=== PATIENT | male | born 1950 | race Caucasian/White ===

== ENCOUNTER → 2022-08-07 | Outpatient (CLI) | payer MEDICARE | END | disposition home or self-care (01) | LOC: RAH 10:52 | PROVIDERS: ATTEND Student in an Organized Health Care Education/Training Program | DX: M75.101 Unspecified rotator cuff tear or rupture of right shoulder, not specified as traumatic (principal); M89.011 Algoneurodystrophy, right shoulder; M75.41 Impingement syndrome of right shoulder; M25.711 Osteophyte, right shoulder | CPT/HCPCS: 73221 ==

== ENCOUNTER → 2023-06-21 | Outpatient (CLI) | payer OTHER | END | disposition home or self-care (01) | LOC: RAH 12:43 | PROVIDERS: ATTEND Internal Medicine Cardiovascular Disease | DX: Z13.6 Encounter for screening for cardiovascular disorders (principal) | CPT/HCPCS: 75571 ==

== ENCOUNTER 2023-12-12 06:38 | Observation (INO) | payer MEDICARE ==
[2023-12-06 11:44] LABS: BASOPHILS # (AUTO) 0.02 K/uL (0.00-0.20); BASOPHILS % (AUTO) 0.3 % (0.0-5.0); EOSINOPHILS # (AUTO) 0.23 K/uL (0.00-0.70); HEMATOCRIT 36.3 % (42-54); IMMATURE GRANULOCYTE ABSOLUTE 0.03 K/uL (0-1); LYMPHOCYTES # (AUTO) 1.9 K/uL (1.0-4.8); LYMPHOCYTES % (AUTO) 33.3 % (21.0-51.0); MEAN CORPUSCULAR HEMOGLOBIN 30.7 pg (27.0-33.0); MEAN CORPUSCULAR VOLUME 87.7 fL (79-99); MONOCYTES # (AUTO) 0.6 K/uL (0.1-1.0); MONOCYTES % (AUTO) 10.8 % (3.0-13.0); NEUTROPHILS # (AUTO) 2.9 K/uL (1.8-7.7); NEUTROPHILS % (AUTO) 51.1 % (40.0-77.0); PLATELET COUNT (AUTO) 235 K/uL (130-400); RED BLOOD CELL COUNT(AUTO) 4.14 MIL/uL (4.50-6.20); WHITE BLOOD COUNT (AUTO) 5.8 K/uL (4.8-10.8)
[2023-12-06 11:55] LABS: INR 0.94 (0.85-1.15); PROTHROMBIN TIME 10.9 SEC (9.6-11.6)
[2023-12-06 11:56] LABS: ALBUMIN 3.8 g/dL (3.5-5.0); CREATININE 1.2 mg/dL (0.5-1.5); PARTIAL THROMBOPLASTIN TIME 27.6 SEC (26.3-35.5)
[2023-12-06 11:57] LABS: APPEARANCE,URINE CLEAR (CLEAR); BILIRUBIN,URINE 1 mg/dL (NEGATIVE); COLOR,URINE LIGHT-YELLOW (YELLOW); GLUCOSE, URINE (UA) NEGATIVE (NEGATIVE); KETONES,URINE NEGATIVE (NEGATIVE); LEUKOCYTE ESTERASE ,URINE NEGATIVE Leu/uL (NEGATIVE); NITRATE,URINE NEGATIVE (NEGATIVE); OCCULT BLOOD,URINE NEGATIVE (NEGATIVE); PH,URINE 5.5 (5.0-8.0); PROTEIN,URINE NEGATIVE (NEGATIVE); UROBILINOGEN,URINE 0.2 mg/dL (0.2-1.0)
[2023-12-06 12:01] LABS: ADD UA MICROSCOPIC YES
[2023-12-06 12:20] LABS: MUCUS,URINE RARE LPF (None Seen); RBC,URINE 0-1 /HPF (0-1); WBC,URINE 0-1 /HPF (0-1)
[2023-12-06 12:42] VITALS: BP 168/85; PULSE 57; RESP 16
[2023-12-12] VITALS (28 sets, daily range): BP systolic 113–151; BP diastolic 51–71; PULSE 54–75; RESP 10–20; O2SAT 97–100
[~2023-12-12] VITALS: Ht 177.8 cm; Wt 127.9 kg
[2023-12-12] MEDS: CEFAZOLIN SODIUM 1 GM VIAL ONE (06:30)
[2023-12-12] MEDS: CEFAZOLIN SODIUM 2 GM VIAL ONE (06:30)
[~2023-12-12 06:38] MED LIST: ATOR40TA71 PO; AZEL137S11 NS; CARB-182 OU; CARV6.25 PO; CHOND PO; DILT300T11 PO; ETOD400T3 PO; FENO145T26 PO; FLUO40CR9 TP; FLUT15.845 NS; GLUCOSAMINE PO; LEVO5TAB13 PO; LEVO75 PO; LOSA1TAB37 PO; MONT-39 PO; OMEP20TA20 PO; PURELAX PO; TADA5TAB13 PO; VENL37.587 PO; XYLIMELTS PO; mvi PO; preservision PO
[2023-12-12] MEDS ORDERED: PROPOFOL 10 MG/ML 20ML VIAL IV ONE (07:50)
[2023-12-12] MEDS ORDERED: ROCURONIUM BROMIDE 10MG/1ML 5ML VL ONE ×2 (07:50→10:06)
[2023-12-12] MEDS ORDERED: SUCCINYLCHOLINE CHLORIDE 20 MG/ML 10 ML VIAL ONE (07:50)
[2023-12-12] MEDS ORDERED: MIDAZOLAM HCL 1 MG/ML 2ML VIAL ONE (07:50)
[2023-12-12] MEDS ORDERED: GLYCOPYRROLATE 0.2 MG/ML 5 ML VIAL ONE (07:50)
[2023-12-12] MEDS ORDERED: LIDOCAINE PF 100MG/5ML (2%) SYRINGE 5ML ONE (07:50)
[2023-12-12] MEDS ORDERED: PHENYLEPHRINE HCL 10 MG/ML 1ML VIAL IV ONE (07:51)
[2023-12-12] MEDS ORDERED: FENTANYL CITRATE PF 50 MCG/1 ML 2ML VIAL ONE ×2 (07:51→10:03)
[2023-12-12] MEDS ORDERED: ROPIVACAINE 0.5% 5MG/ML 30ML ONE ×2 (07:56→08:27)
[2023-12-12] MEDS ORDERED: TRANEXAMIC ACID 1000MG/10ML ONE (08:27)
[2023-12-12] MEDS ORDERED: KETOROLAC 30MG VIAL (30MG/ML) ONE (08:27)
[2023-12-12] MEDS: LACTATED RINGERS 1000ML 1,000 ML IV ONE (09:20)
[2023-12-12] MEDS: CEFAZOLIN SODIUM 3 GM VIAL IVPB ONE (09:50)
[2023-12-12] MEDS: TRANEXAMIC ACID 1000MG/10ML IV ONE ×3 (09:52→11:01)
[2023-12-12] MEDS ORDERED: EPHEDRINE SULFATE 50 MG/ML AMPULE ONE (09:59)
[2023-12-12] MEDS: KETOROLAC 30MG VIAL (30MG/ML) IJ ONE ×2 (10:17→10:59)
[2023-12-12] MEDS: ROPIVACAINE 0.5% 5MG/ML 30ML IJ ONE ×2 (10:18→10:59)
[2023-12-12] MEDS: HYDROMORPHONE 1 MG INJ ONE (10:27)
[2023-12-12] MEDS: SUGAMMADEX SODIUM 200 MG/2 ML VIAL IV ONE (10:27)
[2023-12-12] MEDS: FAMOTIDINE 20MG VIAL IV ONE (10:27)
[2023-12-12] MEDS: 0.9%NACL 1000ML 1,000 ML IV SCH (12:00)
[2023-12-12] MEDS ORDERED: CYCLOBENZAPRINE HCL 10 MG TABLET PO PRN (12:00)
[2023-12-12] MEDS ORDERED: FERROUS FUMARATE 324 MG TABLET PO PRN (12:00)
[2023-12-12] MEDS ORDERED: POTASSIUM CHLORIDE 10% ELIXIR 20 MEQ/15 ML UDCUP PO PRN (12:00)
[2023-12-12] MEDS ORDERED: ONDANSETRON 4MG INJ IVP PRN (12:00)
[2023-12-12] MEDS ORDERED: CALCIUM CARB 500MG PO PRN (12:00)
[2023-12-12] MEDS ORDERED: TRAMADOL HCL 50 MG TABLET PO PRN (12:00)
[2023-12-12] MEDS ORDERED: POTASSIUM CHLORIDE 20MEQ/100ML 100 ML IV PRN (12:00)
[2023-12-12] MEDS: GABAPENTIN 100 MG CAPSULE PO SCH (14:00)
[2023-12-12] MEDS: CEFAZOLIN SODIUM 2 GM VIAL IVPB SCH (18:25)
[2023-12-12] MEDS: KETOROLAC 15MG/ML VIAL (15MG/ML) IV SCH (18:25)
[2023-12-12] MEDS ORDERED: CARBOXYMETHYLCELLULOSE SODIUM OU PRN (20:00)
[2023-12-12] MEDS ORDERED: APPL PO PRN (20:30)
[2023-12-12] MEDS ORDERED: XYLIMELTS PO PRN (20:30)
[2023-12-12] MEDS: CHOND PO SCH (21:00)
[2023-12-12] MEDS: AZELASTINE HCL NASAL SCH (21:00)
[2023-12-12] MEDS: FLUTICASONE PROPIONATE NASAL SCH (21:00)
[2023-12-12] MEDS: GLUCOSAMINE PO SCH (21:00)
[2023-12-12] MEDS: PRESERVISION PO SCH (21:00)
[2023-12-12] MEDS: DOCUSATE SODIUM 100 MG CAP PO SCH (21:51)
[2023-12-13 00:02] VITALS: BP 138/57; PULSE 77; RESP 18
[2023-12-13 03:47] LABS: HEMATOCRIT 30.6 % (42-54); MEAN CORPUSCULAR HEMOGLOBIN 30.8 pg (27.0-33.0); MEAN CORPUSCULAR HGB CONC 34.3 g/dL (32.0-36.0); MEAN CORPUSCULAR VOLUME 89.7 fL (79-99); RED BLOOD CELL COUNT(AUTO) 3.41 MIL/uL (4.50-6.20); RED CELL DISTRIBUTION WIDTH 13.1 % (11.0-15.5); WHITE BLOOD COUNT (AUTO) 9.1 K/uL (4.8-10.8)
[2023-12-13 03:50] VITALS: BP 113/49; PULSE 68; RESP 20
[2023-12-13 04:07] LABS: CREATININE 1.2 mg/dL (0.5-1.5); POTASSIUM 3.4 mmol/L (3.5-5.1)
[2023-12-13] MEDS: KCL 20 MEQ ERTAB PO PRN (06:39)
[2023-12-13 08:00] VITALS: BP 161/61; PULSE 68; RESP 20; O2SAT 100
[2023-12-13] MEDS ORDERED: KETOROLAC 15MG/ML VIAL (15MG/ML) IV PRN (08:00)
[2023-12-13] MEDS: HYDROCODONE/ACETAMINOPHEN 5/325 MG TAB PO PRN (08:23)
[2023-12-13] MEDS: VENLAFAXINE HCL XR 37.5 MG CAP PO SCH (08:38)
[2023-12-13] MEDS: FENOFIBRATE NANOCRYSTALLIZED 145 MG TAB PO SCH (08:38)
[2023-12-13] MEDS: ATORVASTATIN 40 MG TABLET PO SCH (08:38)
[2023-12-13] MEDS: CARVEDILOL 6.25 MG TABLET PO SCH (08:39)
[2023-12-13] MEDS: PANTOPRAZOLE 40 MG TAB DR PO SCH (08:39)
[2023-12-13] MEDS: LEVOTHYROXINE 75 MCG TABLET PO SCH ×2 (08:40→09:00)
[2023-12-13] MEDS: ASPIRIN 325MG EC TAB PO SCH (08:41)
[2023-12-13] MEDS: LOSARTAN/HYDROCHLOROTHIAZIDE 50-12.5MG TABLET PO SCH (08:41)
[2023-12-13] MEDS: MONTELUKAST SODIUM 10 MG TAB PO SCH (08:41)
[2023-12-13] MEDS: POLYETHYLENE GLYCOL 3350 17 GM POWD.PACK PO SCH (08:42)
[2023-12-13] MEDS: LEVOCETIRIZINE DIHYDROCHLORIDE PO SCH (08:51)
[2023-12-13] MEDS: FLUOROURACIL APPL TP SCH (09:00)
[2023-12-13] MEDS: DILTIAZEM HCL PO SCH (09:00)
[2023-12-13] MEDS: MVI PO SCH (09:00)
[2023-12-13] MEDS ORDERED: NON-FORMULARY MEDICATION 1 EACH (Omeprazole 20 MG) PO SCH (09:00)
[2023-12-13 12:00] VITALS: BP 135/64; PULSE 69; RESP 18
[2023-12-13] MEDS ORDERED: GABA100C PO (13:13)
[2023-12-13] MEDS ORDERED: HYDR-4060 PO (13:13)
[2023-12-13] MEDS ORDERED: CYCL-309 PO (13:13)
[2023-12-13] MEDS ORDERED: ASPI-891 PO (13:13)
[2023-12-13] MEDS ORDERED: DOCU-116 PO (13:13)
[2023-12-15] MEDS ORDERED: BISACODYL 10 MG SUPP.RECT RC PRN (12:00)
== END 2023-12-13 16:45 | disposition home or self-care (01) ==
LOC: DAH 06:38 → DAHIP 06:39 → DAH 06:39 → 4AH 13:45
PROVIDERS: ADMIT Student in an Organized Health Care Education/Training Program; ATTEND Student in an Organized Health Care Education/Training Program
DX: M17.11 Unilateral primary osteoarthritis, right knee (principal); G89.18 Other acute postprocedural pain; D62 Acute posthemorrhagic anemia; I10 Essential (primary) hypertension; K21.9 Gastro-esophageal reflux disease without esophagitis; E07.9 Disorder of thyroid, unspecified; G47.30 Sleep apnea, unspecified; I48.0 Paroxysmal atrial fibrillation; E78.5 Hyperlipidemia, unspecified; N40.0 Benign prostatic hyperplasia without lower urinary tract symptoms; Z86.2 Personal history of diseases of the blood and blood-forming organs and certain disorders involving the immune mechanism
CPT/HCPCS: 82040; 80048 ×2; 85025; 85610; 85730; 87088; 84134; 86140; 81001; 36415 ×2; 93005; 87641; 96374; 96375; 64447; 27447; 73560; 97161; 97116 ×3; 97530 ×7; 96376; 85027; G0378 ×26; A4663; A4215 ×2; J0690 ×5; J7120; J3490 ×8; J3010 ×2; J1170; J0330; J2001; J2250; J2704; J1885 ×5; J2795 ×3; J2371; C1713 ×2; G0168; C1776 ×2; A4930; A4649 ×2; A6255; A5120; A4223; A4213; A4222; A4221

== ENCOUNTER 2024-06-20 06:29 | Day surgery (SDC) | payer MEDICARE ==
[2024-06-18 14:37] LABS: BASOPHILS # (AUTO) 0.03 K/uL (0.00-0.20); BASOPHILS % (AUTO) 0.5 % (0.0-5.0); EOSINOPHILS % (AUTO) 4.8 % (0.0-8.0); HEMATOCRIT 34.3 % (42-54); IMMATURE GRANULOCYTE ABSOLUTE 0.02 K/uL (0-1); LYMPHOCYTES % (AUTO) 31.6 % (21.0-51.0); MEAN CORPUSCULAR HEMOGLOBIN 30.3 pg (27.0-33.0); MEAN CORPUSCULAR HGB CONC 33.2 g/dL (32.0-36.0); MEAN CORPUSCULAR VOLUME 91.2 fL (79-99); MONOCYTES # (AUTO) 0.7 K/uL (0.1-1.0); MONOCYTES % (AUTO) 11.3 % (3.0-13.0); NEUTROPHILS # (AUTO) 3.2 K/uL (1.8-7.7); NEUTROPHILS % (AUTO) 51.5 % (40.0-77.0); PLATELET COUNT (AUTO) 206 K/uL (130-400); RED BLOOD CELL COUNT(AUTO) 3.76 MIL/uL (4.50-6.20); RED CELL DISTRIBUTION WIDTH 14.2 % (11.0-15.5); WHITE BLOOD COUNT (AUTO) 6.3 K/uL (4.8-10.8)
[2024-06-18 14:49] LABS: POTASSIUM 3.7 mmol/L (3.5-5.1)
[2024-06-18 15:15] VITALS: BP 158/87; PULSE 61; RESP 19; TEMP 98.5
[2024-06-18 15:47] LABS: INR 1.03 (0.85-1.15); PROTHROMBIN TIME 11.1 SEC (9.6-11.6)
[2024-06-18 15:48] LABS: PARTIAL THROMBOPLASTIN TIME 26.8 SEC (26.3-35.5)
[2024-06-20] VITALS (18 sets, daily range): BP systolic 107–155; BP diastolic 44–77; PULSE 41–55; RESP 13–17; TEMP 97.1–98
[~2024-06-20] VITALS: Ht 177.8 cm; Wt 129.4 kg
[~2024-06-20 06:29] MED LIST changes: +ACET-2027 PO; -AZEL137S11 NS; -CARB-182 OU; -CHOND PO; +DOCU100C33 PO; +FINA5TAB41 PO; +GLUC15006 PO; -GLUCOSAMINE PO; +MULT1CAP17 PO; -PURELAX PO; +TAMS-1 PO; +VIT1CAPS5 PO; -XYLIMELTS PO; -mvi PO; -preservision PO
[2024-06-20] MEDS: ceFAZolin SODIUM 1 GM VIAL ONE (06:48)
[2024-06-20] MEDS: ceFAZolin SODIUM 2 GM VIAL ONE (06:48)
[2024-06-20] MEDS ORDERED: acetaMINOPHEN 1,000 MG/100 ML VIAL IV ONE (07:53)
[2024-06-20] MEDS ORDERED: FAMOTIDINE 20MG VIAL IV ONE (07:53)
[2024-06-20] MEDS ORDERED: ketaMINE 50MG/ML SYRINGE 50 MG/ML DISP.SYRIN ONE (07:55)
[2024-06-20] MEDS ORDERED: LIDOCAINE PF 100MG/5ML (2%) SYRINGE 5ML ONE (07:59)
[2024-06-20] MEDS ORDERED: FENTanyl CITRate PF 50 MCG/1 ML 2ML VIAL ONE (07:59)
[2024-06-20] MEDS ORDERED: proPOFol 10 MG/ML 20ML VIAL IV ONE (08:00)
[2024-06-20] MEDS ORDERED: rocuRONium bROMide 10MG/1ML 5ML VL ONE (08:00)
[2024-06-20] MEDS ORDERED: ACET-2079 PO (08:05)
[2024-06-20] MEDS ORDERED: dexaMETHasone SOD PHOSPHATE 10MG/ML 1ML VIAL ONE (08:09)
[2024-06-20] MEDS ORDERED: ONDANSETRON 4MG INJ ONE (08:10)
[2024-06-20] MEDS: BUPIvacaine/PF 0.25% 30ML VIAL IJ ONE (08:36)
[2024-06-20] MEDS ORDERED: NEOSTIGMINE METHYLSULFATE 1MG/ML IV ONE (08:59)
[2024-06-20] MEDS ORDERED: GLYCOPYRROLATE 0.2 MG/ML 5 ML VIAL ONE (08:59)
[2024-06-20] MEDS: LACTATED RINGERS 1000ML 1,000 ML IV ONE (09:41)
[2024-06-20] MEDS: IpraTROPium/alBUTERol SULFATE 3 ML SOLUTION IH ONE ×2 (10:19)
== END 2024-06-20 11:00 | disposition home or self-care (01) ==
LOC: DAH 06:29
PROVIDERS: ATTEND Student in an Organized Health Care Education/Training Program
DX: M65.861 Other synovitis and tenosynovitis, right lower leg (principal); T84.84XA Pain due to internal orthopedic prosthetic devices, implants and grafts, initial encounter; I10 Essential (primary) hypertension; E78.5 Hyperlipidemia, unspecified; E03.9 Hypothyroidism, unspecified; G47.33 Obstructive sleep apnea (adult) (pediatric); K21.9 Gastro-esophageal reflux disease without esophagitis; M19.90 Unspecified osteoarthritis, unspecified site; Z96.651 Presence of right artificial knee joint; Z99.89 Dependence on other enabling machines and devices; Z88.8 Allergy status to other drugs, medicaments and biological substances; Z98.49 Cataract extraction status, unspecified eye; Z79.01 Long term (current) use of anticoagulants; Z79.899 Other long term (current) drug therapy
CPT/HCPCS: 80048; 85025; 85610; 85730; 36415; 93005; 29876; 94640; A4663; J7120 ×2; A4215 ×2; A4649 ×2; J3490 ×4; J3010; J0690 ×2; J1100; J0665; J2001; J2704; J2405; J2710; A6223; A4930; A5120; A4223; A4222; A4221; A6450